=== PATIENT | female | born 1955 | race Two or more races ===

== ENCOUNTER 2025-04-27 19:18 | Inpatient (IN) | payer OTHER ==
[~2025-04-27] VITALS: Ht 157.5 cm; Wt 44.5 kg
[2025-04-27] MEDS ORDERED: LIPITOR20 MG (20:29)
--- NOTE | 2025-04-27 20:29 | NUR ---
PTE REFIERE DOLOR ABDOMINAL Y VOMITOS PERSISTENTES.
[2025-04-27] MEDS ORDERED: 0.9 % SODIUM CHLORIDE 1,000 ML IV SCH (21:30)
[2025-04-27] MEDS ORDERED: FAMOtidine 10 MG/ML (4ML VIAL) IV PUSH ONE (21:30)
[2025-04-27] MEDS ORDERED: MORPHINE SULFATE 4 MG/ML CARTRIDGE IV ONE (21:30)
[2025-04-27] MEDS ORDERED: KETOROLAC TROMETHAMINE 15 MG VIAL IV ONE (21:30)
[2025-04-27] MEDS ORDERED: ONDANSETRON HCL 2 MG/ML VIAL IV ONE (21:30)
[2025-04-27] MEDS ORDERED: KETOROLAC TROMETHAMINE 30 MG VIAL ONE (21:56)
[2025-04-27] MEDS ORDERED: FAMOTIDINE/PF 20 MG/2 ML VIAL ONE (21:56)
[2025-04-27] MEDS ORDERED: ONDANSETRON HCL 2 MG/ML VIAL ONE (21:56)
--- NOTE | 2025-04-27 22:35 | NUR ---
PACIENTE EVALUADA POR QUIEN ORDENA TRATAMIENTO MEDICO, RN PHILIP LE ORIENTA A PACIENTE SOBRE EL MISMO Y REFIERE ENTENDER, LE COLECTA MUESTRAS, LE CANALIZA Y LE ADMINISTRA MEDICAMENTOS BAJO MEDIDAS ASEPTICAS. LE HACE ENTREGA DE ENVAASE A PACIENTE PARA COLECTA DE U/A. PENDIENTE ESTUDIO
[2025-04-27 23:49] LABS: BASO % 0.2 % (0.1-1.2); EOS # 0.00 (0.04-0.54); EOS % 0.0 % (0.7-7.0); LYMPH # 0.80 (1.18-3.74); LYMPH % 7.1 % (19.3-53.1); MEAN PLATELET VOLUME 11.10 fl (9.4-12.4); MONO # 0.54 (0.24-0.82); MONO % 4.8 % (4.7-12.5); NEUT # 9.91 (1.56-6.13); NEUT % 87.6 % (34.0-71.1); RED CELL DISTRIBUTION WIDTH 13.3 % (11.6-14.4)
[2025-04-27 23:54] LABS: INR 1.01
[2025-04-28 00:30] LABS: ALT/SGPT 23.0 U/L (12-78); AST/SGOT 18.0 U/L (15-37); BILIRUBIN TOTAL 1.28 mg/dL (0.3-1.2); BUN CREA RATIO 19.0 (7.0-25.0); CREATININE SERUM 0.7 mg/dL (0.55-1.02); GFR 82.72; GLOBULINA 4.4 G/DL (2.4-3.5); GLUCOSE FASTING 156.0 mg/dL (65-100); OSMOLALITY SERUM 285.0 MOSM/KG (275-295)
[2025-04-28] MEDS ORDERED: PIPERACILLIN/TAZOBACTAM SODIUM 3.375 GM in DEXTROSE 5 % IN WATER 100 ML IV SCH (00:37)
[2025-04-28] MEDS ORDERED: ONDANSETRON HCL 4 MG in 0.9 % SODIUM CHLORIDE 50 ML IV PRN (00:45)
[2025-04-28] MEDS ORDERED: PIPERACILLIN/TAZOBACTAM SODIUM 3.375 GM VIAL IV ONE ×3 (01:42→12:34)
[2025-04-28] MEDS ORDERED: LIDOCAINE HCL VISCOUS 20MG/ML BLIST 15ML MM ONE (01:49)
--- NOTE | 2025-04-28 03:29 | NUR ---
SE TRASLADA PTE. HACIA AREA K CAMA #8, SE INSERTA TUBO NASOGASTRICO #16 Y SE CONECTA A SUCCION INTERMITENTE, SE ADMINISTRAN MEDICAMENTOS LEYLA ORDEN MEDICA Y SE ORIENTA SOBRE PROCEDIMIENTOS REALIZADOS Y SEGUIMIENTO DE TRATAMIENTO. CLIENTE ALERTA Y ORIENTADO CAYETANO LA INTERVENCION POR PARTE DE PERSONAL RN.
[2025-04-28 08:58] LABS: URINE APPEARANCE Cloudy; URINE BILIRRUBIN Negative (NEGATIVE); URINE BLOOD Negative; URINE COLOR Yellow; URINE GLUCOSE Negative (NEGATIVE); URINE LEUKOCYTE Negative; URINE NITRATE Negative; URINE PROTEIN Negative (NEGATIVE); URINE UROBILINOGEN 0.2 E.U./dl
[2025-04-28 09:01] LABS: URINE BACTERIA 34.7 uL (0.0-1933); URINE EPITHELIAL CELLS 6.6 uL (0.0-38.8); URINE RBC 34.0 uL (0.0-20.8); URINE WBC 3.8 uL (0.0-23.2)
[2025-04-28 09:25] LABS: URINE CAST 0.87 uL (0.0-1.40); URINE CRYSTALS MODERATE /HPF; URINE KETONE 40 (NEGATIVE)
[2025-04-28] MEDS ORDERED: ONDANSETRON HCL 2 MG/ML VIAL IV PRN (15:00)
[2025-04-28] MEDS ORDERED: RINGERS SOLUTION,LACTATED 1,000 ML IV SCH (15:00)
[2025-04-28] MEDS ORDERED: POTASSIUM CHLORIDE-0.45% NACL 20 MEQ/1,000 ML PIGGYBAG IV ONE (15:23)
[2025-04-28 15:34] VITALS: BP 122/62; O2SAT 98
[2025-04-28] MEDS ORDERED: POTASSIUM CHLORIDE-0.45% NACL 20 MEQ/1,000 ML PIGGYBAG IV SCH (17:00)
[2025-04-28 18:57] VITALS: BP 120/66; O2SAT 95
[2025-04-29 01:12] VITALS: BP 104/58; O2SAT 97
[2025-04-29 06:15] LABS: BASO % 0.3 % (0.1-1.2); EOS # 0.12 (0.04-0.54); EOS % 2.0 % (0.7-7.0); LYMPH # 1.50 (1.18-3.74); LYMPH % 24.8 % (19.3-53.1); MEAN PLATELET VOLUME 11.60 fl (9.4-12.4); MONO # 0.51 (0.24-0.82); MONO % 8.4 % (4.7-12.5); NEUT # 3.90 (1.56-6.13); NEUT % 64.3 % (34.0-71.1); RED CELL DISTRIBUTION WIDTH 14.3 % (11.6-14.4)
[2025-04-29 07:35] VITALS: BP 94/52
[2025-04-29] MEDS ORDERED: DIATRIZOATE MEGLUMINE, SODIUM 30 ML BOTTLE PO NR (08:00)
[2025-04-29] MEDS ORDERED: PANTOPRAZOLE SODIUM 40 MG/VIAL VIAL IV SCH (09:00)
[2025-04-29 16:25] VITALS: BP 116/70; O2SAT 99
[2025-04-29] MEDS ORDERED: ENOXAPARIN SODIUM 40 MG/0.4 ML SYRINGE SUBCUTANEO SCH (17:00)
[2025-04-29 19:20] LABS: BUN CREA RATIO 13.0 (7.0-25.0); CREATININE SERUM 0.64 mg/dL (0.55-1.02); GFR 91.74; GLUCOSE FASTING 64.0 mg/dL (65-100); OSMOLALITY SERUM 283.0 MOSM/KG (275-295)
[2025-04-29 23:33] VITALS: BP 101/59; O2SAT 99
[2025-04-30 07:29] LABS: BASO % 0.4 % (0.1-1.2); EOS # 0.18 (0.04-0.54); EOS % 3.4 % (0.7-7.0); LYMPH # 1.59 (1.18-3.74); LYMPH % 30.2 % (19.3-53.1); MEAN PLATELET VOLUME 11.20 fl (9.4-12.4); MONO # 0.56 (0.24-0.82); MONO % 10.6 % (4.7-12.5); NEUT # 2.90 (1.56-6.13); NEUT % 55.2 % (34.0-71.1); RED CELL DISTRIBUTION WIDTH 13.9 % (11.6-14.4)
[2025-04-30 08:00] VITALS: BP 118/69; O2SAT 99
[2025-04-30 08:18] LABS: ALT/SGPT 14.0 U/L (12-78); AST/SGOT 15.0 U/L (15-37); BILIRUBIN TOTAL 1.61 mg/dL (0.3-1.2); BUN CREA RATIO 20.0 (7.0-25.0); CREATININE SERUM 0.51 mg/dL (0.55-1.02); GFR 119.22; GLOBULINA 2.7 G/DL (2.4-3.5); OSMOLALITY SERUM 282.0 MOSM/KG (275-295)
[2025-04-30 08:44] LABS: GLUCOSE FASTING 31.0 mg/dL (65-100)
[2025-04-30] MEDS ORDERED: DEXTROSE 5 % AND 0.9 % NACL 1,000 ML IV SCH (09:00)
[2025-04-30] MEDS ORDERED: DIATRIZOATE MEGLUMINE, SODIUM 30 ML BOTTLE PO NR (09:00)
[2025-04-30] MEDS ORDERED: DEXTROSE 50 % IN WATER 0.5 G/ML VIAL IV STA (10:26)
[2025-04-30 18:16] VITALS: BP 115/66; O2SAT 99
[2025-05-01 02:48] VITALS: BP 107/57; O2SAT 98
[2025-05-01 08:35] VITALS: BP 152/81; O2SAT 98
[2025-05-01 15:50] VITALS: BP 128/78; O2SAT 99
[2025-05-02 00:58] VITALS: BP 110/68; O2SAT 96
[2025-05-02] MEDS ORDERED: SUGAMMADEX SODIUM 200 MG/2 ML VIAL IV ONE (10:09)
[2025-05-02] MEDS ORDERED: DEXTROSE 50 % IN WATER 0.5 G/ML DISP.SYRIN IV PRN (10:15)
[2025-05-02] MEDS ORDERED: ONDANSETRON HCL 2 MG/ML VIAL IV PRN (10:15)
[2025-05-02] MEDS ORDERED: 0.9 % SODIUM CHLORIDE 1,000 ML IV SCH (10:15)
[2025-05-02] MEDS ORDERED: OxyCODONE HCL 5 MG TABLET (ROXICODONE) PO PRN (10:15)
[2025-05-02] MEDS ORDERED: MORPHINE SULFATE 4 MG/ML CARTRIDGE IV PRN (10:15)
[2025-05-02] MEDS ORDERED: HYOSCYAMINE SULFATE 0.125 MG TAB.SUBL SL SCH (13:00)
[2025-05-02] MEDS ORDERED: ACETAMINOPHEN 500 MG GEL..CAP PO SCH (14:00)
[2025-05-02 16:00] VITALS: BP 116/70; O2SAT 98
[2025-05-02] MEDS ORDERED: GABAPENTIN 300 MG CAPSULE PO SCH (17:00)
[2025-05-02] MEDS ORDERED: CELECOXIB 200 MG CAPSULE PO SCH (21:00)
[2025-05-02] MEDS ORDERED: FAMOTIDINE/PF 20 MG/2 ML VIAL IV PUSH SCH (21:00)
[2025-05-03 00:17] VITALS: BP 111/76; O2SAT 98
[2025-05-03 07:51] VITALS: BP 129/72; O2SAT 98
[2025-05-03 08:17] LABS: BUN CREA RATIO 8.0 (7.0-25.0); CREATININE SERUM 0.52 mg/dL (0.55-1.02); GFR 116.58; GLUCOSE FASTING 82.0 mg/dL (65-100); OSMOLALITY SERUM 287.0 MOSM/KG (275-295)
[2025-05-03 08:47] LABS: BASO % 0.8 % (0.1-1.2); EOS # 0.26 (0.04-0.54); EOS % 5.4 % (0.7-7.0); LYMPH # 1.51 (1.18-3.74); LYMPH % 31.2 % (19.3-53.1); MEAN PLATELET VOLUME 11.40 fl (9.4-12.4); MONO # 0.54 (0.24-0.82); MONO % 11.2 % (4.7-12.5); NEUT # 2.48 (1.56-6.13); NEUT % 51.2 % (34.0-71.1); RED CELL DISTRIBUTION WIDTH 13.6 % (11.6-14.4)
[2025-05-03 16:59] VITALS: BP 112/71; O2SAT 96
[2025-05-03] MEDS ORDERED: ENOXAPARIN SODIUM 40 MG/0.4 ML SYRINGE SUBCUTANEO SCH (17:00)
[2025-05-04 00:49] VITALS: BP 96/59; O2SAT 96
[2025-05-04 08:00] VITALS: BP 122/68; O2SAT 98
[2025-05-04] MEDS ORDERED: ENOXAPARIN SODIUM 40 MG/0.4 ML SYRINGE SUBCUTANEO SCH (09:00)
[2025-05-04 16:00] VITALS: BP 138/77; O2SAT 96
[2025-05-05 06:24] LABS: BASO % 0.9 % (0.1-1.2); EOS # 0.30 (0.04-0.54); EOS % 6.9 % (0.7-7.0); LYMPH # 1.43 (1.18-3.74); LYMPH % 32.7 % (19.3-53.1); MEAN PLATELET VOLUME 10.90 fl (9.4-12.4); MONO # 0.49 (0.24-0.82); MONO % 11.2 % (4.7-12.5); NEUT # 2.10 (1.56-6.13); NEUT % 48.1 % (34.0-71.1); RED CELL DISTRIBUTION WIDTH 13.7 % (11.6-14.4)
[2025-05-05 06:52] LABS: BUN CREA RATIO 14.0 (7.0-25.0); CREATININE SERUM 0.64 mg/dL (0.55-1.02); GFR 91.74; GLUCOSE FASTING 85.0 mg/dL (65-100); OSMOLALITY SERUM 290.0 MOSM/KG (275-295)
[2025-05-05 09:46] VITALS: BP 111/70; O2SAT 99
== END 2025-05-05 15:23 | disposition home or self-care (01) | DRG 337 ==
LOC: ER 19:18 → SURG 04-28 15:40 → SEC-K 04-28 15:40 → SURG 04-28 15:51
PROVIDERS: General Practice; ADMIT Surgery; ATTEND Surgery
PROC: BW21ZZZ Computerized Tomography (CT Scan) of Abdomen and Pelvis (ICD-10-PCS; 2025-04-27)
PROC: BW21ZZZ Computerized Tomography (CT Scan) of Abdomen and Pelvis (ICD-10-PCS; 2025-04-30)
PROC: 05HB33Z Insertion of Infusion Device into Right Basilic Vein, Percutaneous Approach (ICD-10-PCS; 2025-05-01)
PROC: 0DNW4ZZ Release Peritoneum, Percutaneous Endoscopic Approach (ICD-10-PCS; 2025-05-02)
PROC: 0DN84ZZ Release Small Intestine, Percutaneous Endoscopic Approach (ICD-10-PCS; principal; 2025-05-02 07:00)
DX: K56.50 Intestinal adhesions [bands], unspecified as to partial versus complete obstruction (principal)